=== PATIENT | male | born 1960 | race African-American/Black ===

== ENCOUNTER 2019-03-30 20:37 | Emergency (ER) | payer BC, OTHER ==
[~2019-03-30 20:37] MED LIST: PANT40SU; TELM1TAB6; TRAM50TA2
--- NOTE | 2019-03-30 20:54 | NUR ---
PATIENT STATES WAS FEELING BETTER, LEFT BEFORE TRIAGE.
== END 2019-03-30 20:56 | disposition left against medical advice (07) ==
LOC: ER 20:41
DX: Z53.21 Procedure and treatment not carried out due to patient leaving prior to being seen by health care provider (principal)